=== PATIENT | female | born 1985 ===

== ENCOUNTER 2018-04-20 08:37 | Emergency (ER) | payer OTHER ==
[2018-04-20 08:58] VITALS: RESP 18; O2SAT 98
--- NOTE | 2018-04-20 10:56 | C.PDOC ---
History Of Present Illness 32yo female, brought to ER by EMS for evaluation of right ankle injury. Patient states she twisted her ankle and is now complaining of pain and swelling. She denies any weakness, numbness or tingling. She offers no additional medical complaints. Time Seen by Provider: 04/20/18 08:40 Chief Complaint (Nursing): Lower Extremity Problem/Injury History Per: Patient History/Exam Limitations: no limitations Onset/Duration Of Symptoms: Mins Current Symptoms Are (Timing): Still Present Additional History Per: Patient - Ankle/Foot Description Of Injury: Twisted Past Medical History Reviewed: Historical Data, Nursing Documentation, Vital Signs Vital Signs: Last Vital Signs Temp 98.6 F 04/20/18 08:45 Pulse 86 04/20/18 08:45 Resp 18 04/20/18 08:45 BP 110/72 04/20/18 08:45 Pulse Ox 98 04/20/18 11:42 - Medical History PMH: No Chronic Diseases Surgical History: Cholecystectomy Family History: States: No Known Family Hx - Social History Hx Alcohol Use: Yes Hx Substance Use: No - Immunization History Hx Tetanus Toxoid Vaccination: Yes Hx Influenza Vaccination: No Hx Pneumococcal Vaccination: No Review Of Systems Except As Marked, All Systems Reviewed And Found Negative. Musculoskeletal: Positive for: Other (right ankle injury) Neurological: Negative for: Weakness, Numbness Physical Exam - Physical Exam Appears: Non-toxic, No Acute Distress Skin: Warm, Dry Head: Atraumatic, Normacephalic Eye(s): bilateral: Normal Inspection Neck: Normal ROM, Supple Cardiovascular: Rhythm Regular Extremity: Tenderness (tenderness to bilateral malleolus), No Pedal Edema, No Calf Tenderness, Capillary Refill (< 2 seconds), No Deformity, Swelling ( swelling to right lateral malleolus), Other (normal distal sensations) Pulses: Left Dorsalis Pedis: Normal, Right Dorsalis Pedis: Normal Neurological/Psych: Oriented x3, Normal Speech, Normal Cognition, Normal Motor, Normal Sensation ED Course And Treatment O2 Sat by Pulse Oximetry: 98 (RA) Pulse Ox Interpretation: Normal - Other Rad XR Right Ankle X-Ray: Read By Radiologist Interpretation: FINDINGS: BONES: Normal. No fracture. JOINTS: Normal. No osteoarthritis. Ankle mortise maintained. Talar dome intact. SOFT TISSUES: Normal. OTHER FINDINGS: None. IMPRESSION: Normal right ankle radiographs. Progress Note: Patient given Motrin 600mg PO, right ankle XR ordered. XR reviewed, no fractures or dislocations noted. Aircast placed by batch room technician and checked by me, post-application neurovascular exam is normal. PT consult placed for crutch training. Disposition - Disposition Referrals: Dori Major MD [Staff Provider] - Disposition: HOME/ ROUTINE Disposition Time: 11:54 Condition: STABLE Additional Instructions: Follow up with Orthopedist within 1-2 days. Return to ED if feel worse. Prescriptions: Ibuprofen [Motrin Tab] 600 mg PO Q8 #30 tab Instructions: Ankle Sprain (DC) Forms: [employer] (Fijian), Work Excuse - Clinical Impression Clinical Impression: Ankle sprain - PA / MATTRESS RENOVATOR / Resident Statement MD/DO has reviewed & agrees with the documentation as recorded. - Scribe Statement The provider has reviewed the documentation as recorded by the Scribe Alee Samano Provider Attestation: All medical record entries made by the Scribe were at my direction and personally dictated by me. I have reviewed the chart and agree that the record accurately reflects my personal performance of the history, physical exam, medical decision making, and the department course for this patient. I have also personally directed, reviewed, and agree with the discharge instructions and disposition.
--- NOTE | 2018-04-20 11:03 | RAD ---
Date of service: 04/20/2018 PROCEDURE: Right Ankle Radiographs. HISTORY: twisted COMPARISON: None FINDINGS: BONES: Normal. No fracture. JOINTS: Normal. No osteoarthritis. Ankle mortise maintained. Talar dome intact SOFT TISSUES: Normal. OTHER FINDINGS: None. IMPRESSION: Normal right ankle radiographs.
[2018-04-20 12:14] VITALS: BP 103/68; PULSE 76; TEMP 98.8
== END 2018-04-20 12:20 | disposition home or self-care (01) ==
LOC: C.ER 08:37
DX: S99.911A Unspecified injury of right ankle, initial encounter (principal); X50.1XXA Overexertion from prolonged static or awkward postures, initial encounter; Y92.89 Other specified places as the place of occurrence of the external cause; Y99.8 Other external cause status
CPT/HCPCS: 29405; 73610; 97116; 97161; 99285; G8978; G8979; G8980